=== PATIENT | female | born 1950 | race Caucasian/White ===

== ENCOUNTER 2016-06-05 10:37 | Emergency (ER) | payer OTHER, MEDICARE ==
[~2016-06-05] VITALS: Ht 167.6 cm; Wt 87.0 kg
[~2016-06-05 10:37] MED LIST: AMBR10TA3 PO; ASPI-1085 PO; BUPR200T PO; CALC600T12 PO; CHOL100018 PO; CYAN10009 PO; DESV100T PO; HYDR10TA14 PO; IBUP-14 PO; LEVO75TA4 PO; METO25TA41 PO; MULT-806 PO; PANT40TA25 PO; PRAV20TA4 PO; TADA20TA31 PO; TRAM50TA4 PO; TRAZ-56 PO
[2016-06-05 10:40] VITALS: TEMP 97.9; Ht 167.6 cm; Wt 87.0 kg
--- OUTSIDE RECORDS SUMMARY | 2016-06-05 10:42 | XMS REPORT | Continuity of Care Document ---
Author Author Alex [facility] LIVE Organization [facility] LIVE Address Unknown Phone Unavailable Support Name Relationship Address Phone HAMIDA CONNOR MD Caregiver [address] [facility] [address] [place] [phone] BHARTI TY DO Caregiver [facility] [address] [place] [address] [address] [place] [address] SARAH EUBANKS SR Next Of Kin [address] [place] [address] Insurance Providers Payer Name Policy Number Subscriber Name Relationship [facility] Preferred [id number] Sarah Eubanks Spouse Advance Directives Directive Response Recorded Date/Time Ordered Resuscitation Status Full Code 11/07/13 9:29am Resuscitation Documents on File No 11/09/13 10:28am Chief Complaint and Reason for Visit Chief Complaint RT KNEE REPLACEMENT Reason for Visit Right knee DJD Problems Medical Problems Problem Onset Date Status 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 Medications Medication Dose Route Sig Days/Qty Instructions Order Date Discontinued Date Status Hydroxychloroquine Sulfate 400 Mg PO DAILY 12/18/09 05/17/13 Discontinued Nisoldipine 20 Mg PO DAILY 12/18/09 07/04/12 Discontinued Bupropion Hcl 150 Mg PO DAILY 12/18/09 Active Levothyroxine Sodium 75 Mcg PO DAILY 12/18/09 Active Loratadine 10 Mg PO DAILY 12/18/09 Active Trazodone Hcl 50 Mg PO BEDTIME 12/18/09 Active Pantoprazole Sodium 40 Mg PO DAILY 12/18/09 Active [pristiq] 50 Mg PO BEDTIME 12/18/09 Active Calcitonin,[place],Synthetic 3.7 Ml NS DAILY 12/18/09 07/04/12 Discontinued Simvastatin 10 Mg PO DAILY 12/18/09 05/21/13 Discontinued Aspirin 81 Mg PO DAILY 12/18/09 11/12/13 Discontinued Diazepam 2 Mg PO NEEDED 05/19/10 Active Ca Cmb No.1/Vit D3/B-6/Fa/B12 1 Each PO DAILY 07/04/12 Active Multivitamins 1 Tab PO DAILY 07/04/12 Active Calcium Carb/Vit D3/Minerals 1 Each PO AT DINNERTIME 07/04/12 Active Metoprolol Tartrate 25 Mg PO DAILY 07/05/12 Active Pravastatin Sodium 10 Mg PO BEDTIME 05/21/13 Active Hydrocortisone 15 Mg PO DAILY 11/07/13 Active [Docusate Sodium] 100 Mg PO TWICE A DAY 30 Qty 11/12/13 Active Multivits,Th W-Fe,Other Min 1 Tab PO DAILY 30 Qty 11/12/13 Active Oxycodone HCl 5-15 Mg PO Every 3 Hours PRN BREAKTHROUGH PAIN 60 Qty 10/18 Active Aspirin 325 Mg PO TWICE A DAY 84 Qty 11/12/13 Active Social History Social History Problem Response Recorded Date/Time Smoking Status Never smoker 11/07/2013 8:50am Chewing Tobacco Status No 08/23/2012 2:55pm Hx Substance Use No 08/23/2012 2:55pm Hx Alcohol Use Y RARELY 08/23/2012 2:55pm Has the pt used tobacco in the last 12 months No 05/21/2013 11:37am Query Response Start Date Stop Date Smoking Status Never smoker Hospital Discharge Instructions Instructions: Care Instructions: Reason for Hospitalization: Right knee DJD I was in the hospital because (patient own words): right knee replacement. Discharge Diet: Regular Discharge Activity: Walk regularly. Try to walk a little farther each day. This will help prevent many of the complications that are possible after a total joint replacement. This would include things like pneumonia, blood clots and constipation. Follow Up Appointments: 11/23/13 9:00 AM [facility] FOLLOW UP APPT WITH DR. TY 11/22 AT 3:15 PM Patient Instructions: Swelling 1.Elevate operative extremity above the level of your heart if possible. This will facilitate the movement of fluid back into your body. 2.Do not sit for more than 1 hour at a time. 3.Ice can be used as tolderated - do not apply directly to skin and only leave on for 20 minutes at a time. Constipation 1.Take a stool softener (Colace, Sennokot-S,etc) as needed to prevent constipation 2.Wean yourself off narcotics as soon as possible. Blood Clot prevention 1.Take your anticoagulant (Aspirin, Coumadin, Lovenox,etc) as directed Driving 1.May drive in 4 weeks if you had your LEFT extremity operated on. 2.May drive in 6 weeks if you had your RIGHT extremity operated on. Wound/Incision Care: Tegaderm 1.Clear dressing is to remain in place for 2 weeks. 2.Do not pick at it or scrub it while showering. 3.If the dressing begins to pull up, secure it with 4x4 gauze pad and tape. 4.You may shower; however, do not submerge yourself in water until the incision is completely healed. Mepilex 1.Dressing to remain in place until your follow up appointment. 2.If this dressing starts peeling up slightly, it may be reinforced, if it peels excessively, notify your surgeon's office. 3.You may shower with the dressing in place, but do not submerge in water 4.Do not allow water to seep under the dressing, if it should seep under, remove the dressing and notify your surgeon. Notify Physician If: Call your Surgeon if you have: 1.Chest pain, difficulty breathing, fever>100.5 degrees, chills, heart rate >100, confusion, or persistent nausea/vomitting. 2.Severe pain, swelling, redness, or warmth in either of your legs. 3.During office hours, call [phone] 4. After hours, please call [facility] at [phone], and have the heat sealing machine operator page your Surgeon IN THE EVENT OF AN EMERGENCY, seek medical care at the nearest Emergency Room Condition at time of discharge: Good Good Care Plan Discharge Patient: Goal: Understand discharge plan Patient Instructions: see patient instructions Discharge Patient: Goal: Understand discharge plan Patient Instructions: see patient instructions Plan of Care Discharge Date 11/12/13 12:41pm Disposition 01 DISCHARGED HOME, SELF-CARE Instructions/Education Provided [facility] Orthopedic Dismissal Prescriptions See Medications Section Functional Status Query Response Date Recorded Physical Hygiene Self November 12, 2013 10:54am Disabilities Visual November 12, 2013 10:54am Devices Used Glasses Walker November 12, 2013 10:54am Dressing Self November 12, 2013 10:54am Ambulation Self November 12, 2013 10:54am Diet Self November 12, 2013 10:54am Mental Status Alert Oriented November 12, 2013 10:54am Disabilities Visual November 12, 2013 10:54am Devices Used Glasses Walker November 12, 2013 10:54am Physical Hygiene Self November 12, 2013 10:54am Dressing Self November 12, 2013 10:54am Ambulation Self November 12, 2013 10:54am Diet Self November 12, 2013 10:54am Allergies, Adverse Reactions, Alerts Allergen Type Severity Reaction Status Last Updated amoxicillin trihydrate Allergy Unknown NAUSEA AND DIARRHEA Active 07/04/12 potassium clavulanate Allergy Unknown NAUSEA AND DIARRHEA Active 07/04/12 Sulfamethoxazole Adverse Reaction Mild nausea and diarrhea Active 05/19/10 Trimethoprim Adverse Reaction Mild nausea and diarrhea Active 05/19/10 CHLORA-PREP Adverse Reaction Intermediate ITCHING Active 08/24/12 Immunizations Name Given Type Hx Influenza Vaccination Y NOV 2012 Historical Hx Pneumococcal Vaccination Y JUNE 2012 Historical Hx Influenza Vaccination Y NOV 2012 Historical Vital Signs Acute Vital Signs Vital Response Date/Time Temperature (Fahrenheit) 98.1 deg F (96.8 - 99.1) Temperature (Calculated Celsius) 36.34253 degrees C (36.0 - 37.3) Temperature Source Oral Pulse Rate (adult) 94 bpm (60 - 100) Respiratory Rate 16 breaths/min (10 - 20) O2 Sat by Pulse Oximetry 92 % (90 - 100) Oxygen Delivery Method Room Air Blood Pressure 120/65 mm Hg Blood Pressure Source Automatic Cuff Height 5 ft 6 in Weight 191 lb Body Mass Index 30.0 kg/m^2 Results Test Source Date Result Interp. Ref. Range Comments Activated Partial Thromboplast Time November 07, 2013 1:33pm 31.8 SEC N 24-36 COMMENT [facility] PREJASEN, ALSO HAS UA ORDERED Adrenocorticotropic Hormone May 22, 2013 5:05am 24 pg/mL - -- REFERENCE VALUE --10-60 (a.m. collection) Test Performed by: [place] [address] Body Shop Manager: Calixto Brown III, M.D. ACTH performed at [facility], [address] [place] [address] Paving And Surfacing Labourer Kevin Goode MD Alanine Aminotransferase (ALT/SGPT) May 21, 2013 11:52am 34 U/L N 9- 52 Albumin May 21, 2013 11:52am 3.9 G/DL N 3.5-5.0 Albumin/Globulin Ratio May 21, 2013 11:52am 1.5 RATIO N 1.1-2.2 Alkaline Phosphatase May 21, 2013 11:52am 76 U/L N 38-126 Anion Gap November 10, 2013 4:41am 6 MEQ/L N 5-15 Aspartate Amino Transf (AST/SGOT) May 21, 2013 11:52am 32 U/L N 14-36 B-Type Natriuretic Peptide May 19, 2010 7:05pm 93 PG/ML N 15-100 BUN/Creatinine Ratio November 10, 2013 4:41am 14 RATIO N 6-26 Band Neutrophils % November 30, 2011 10:40am 2.0 % N 0-6 Basophils # (Auto) November 10, 2013 6:40pm 0.0 T/MM3 N 0-0.2 Basophils (%) (Auto) November 10, 2013 6:40pm 0.4 % N 0-2 Blood Urea Nitrogen November 10, 2013 4:41am 13.0 MG/DL N 7-17 C-Reactive Protein May 17, 2013 4:50pm < 5.0 MG/L 0-9 C. difficile Toxin B Gene (PCR) January 02, 2013 2:06pm Negative - If Toxin A is clinically indicated, treat accordingly. Calcium Level November 10, 2013 4:41am 8.3 MG/DL L 8.4-10.2 Calculated Osmolality November 10, 2013 4:41am 267 MOSM/KG N 261-280 Carbon Dioxide Level November 10, 2013 4:41am 31 MEQ/L H 22-30 Chemistry Specimen Hemolysis November 10, 2013 4:41am < 15 0-25 0-25 : No Hemolysis.26-70: Slight Hemolysis - can falsely elevate K and Urine Protein. 71-285: Moderate Hemolysis - can falsely elevate K, Troponin I, CA 19-9, PTH, CSF GLucose, and Urine Protein, and can falsely decrease Phenytoin. 286-999: Gross Hemolysis - can falsely elevate K, Troponin I, CA 19-9, PTH, CSF Glucose, and Urine Protine, and can falsely decrease Phenytoin. Recommend specimen recollection. Chloride Level November 10, 2013 4:41am 102 MEQ/L N 98-107 Cortisol AM Sample May 22, 2013 5:05am 7.6 UG/DL 1 - Before 10:00am : 4.46-22.7 ug/dL;After 5:00pm: 1.7-14.1 ug/dL Cortisol Response to Stim 1 Hour May 22, 2013 9:37am 18.3 UG/DL - COMMENT MUST BE DRAWN EXACTLY 60 MINUTES AFTER ACTH INJECTION Cortisol Response to Stim 1/2 Hour May 22, 2013 9:07am 15.4 UG/DL - COMMENT MUST BE DRAWN EXACTLY 30 MINUTES AFTER ACTH INJECTION Creatine Kinase MB May 31, 2013 4:35pm 0.5 NG/ML N 0-3.4 Creatinine November 10, 2013 4:41am 0.9 MG/DL N 0.7-1.2 D-Dimer May 31, 2013 3:54pm 492 NG/ML H 0-400 <400 NG/ML=PRESUMPTIVE NEGATIVE FOR PE OR DVT>400 NG/ML=ADDITIONAL EVALUATION FOR PE OR DVT RECOMMENDED Eosinophils # (Auto) November 10, 2013 6:40pm 0.0 T/MM3 N 0-0.5 Eosinophils % (Manual) November 30, 2011 10:40am 2.0 % N 0-4 Eosinophils (%) (Auto) November 10, 2013 6:40pm 0.4 % N 0-4 Erythrocyte Sedimentation Rate May 17, 2013 4:50pm 17 MM/HR N 0-20 Free Thyroxine May 17, 2013 4:50pm 1.84 NG/DL N 0.78-2.19 Globulin May 21, 2013 11:52am 2.6 G/DL N 2.4-3.6 Glomerular Filtration Rate Calc November 10, 2013 4:41am 63 - Glucometer November 12, 2013 8:06am 101 mg/dL N 65-110 Glucose Level November 10, 2013 4:41am 87 MG/DL N 65-110 Hematocrit November 11, 2013 4:37am 29.7 % L 36-46 Hemoglobin November 11, 2013 4:37am 9.3 GM/DL L 12-16 Hemoglobin A1c May 17, 2013 4:50pm 5.2 % L 6-7 <6.0 NON-DIABETIC RANGE6.0-7.0 ADA THERAPEUTIC RANGE >7.0 ACTION SUGGESTED Icterus Index November 10, 2013 4:41am < 2 0-7 Immature Granulocyte # (Auto) November 10, 2013 6:40pm 0.02 T/MM3 N 0.00-0.03 Immature Granulocyte % (Auto) November 10, 2013 6:40pm 0.3 % N 0.0-0.5 Lab Scanned Report May 31, 2013 9:01pm LAB TEST FORM REQUEST [id number] - Lipase May 17, 2013 4:50pm 147 U/L N 23-300 COMMENT add to blood already in laboratory from earlier today. Lymphocytes # (Auto) November 10, 2013 6:40pm 1.7 T/MM3 N 1-4.8 Lymphocytes % (Manual) November 30, 2011 10:40am 41.0 % N 23-45 Lymphocytes (%) (Auto) November 10, 2013 6:40pm 21.1 % L 23-45 MRSA Specimen Source October 16, 2013 1:28pm Nasal - Magnesium Level May 22, 2013 5:05am 2.0 MG/DL N 1.6-2.3 COMMENT add to blood in lab from this AM if possible. Mean Corpuscular Hemoglobin November 11, 2013 4:37am 29.2 UUG N 26-34 Mean Corpuscular Hemoglobin Concent November 11, 2013 4:37am 31.3 GM/DL N 31-37 Mean Corpuscular Volume November 11, 2013 4:37am 93.4 UM3 N 80-100 Mean Platelet Volume November 11, 2013 4:37am 11.4 UM3 N 9.4-12.4 Methicillin-Resist S.aureus DNA PCR October 16, 2013 1:28pm Negative - Monocytes # (Auto) November 10, 2013 6:40pm 1.0 T/MM3 H 0-0.8 Monocytes % (Manual) November 30, 2011 10:40am 2.0 % N 0-9.0 Monocytes (%) (Auto) November 10, 2013 6:40pm 12.0 % H 0-9.0 Neutrophils # (Auto) November 10, 2013 6:40pm 5.3 T/MM3 N 1.8-7.7 Neutrophils % (Manual) November 30, 2011 10:40am 53.0 % N 33-66 Neutrophils (%) (Auto) November 10, 2013 6:40pm 65.8 % N 33-66 Platelet Count November 11, 2013 4:37am 156 T/MM3 N 130-400 Potassium Level November 10, 2013 4:41am 4.2 MEQ/L N 3.6-5 Prothromb Time International Ratio May 19, 2010 7:05pm 0.90 N 0.86- 1.10 THERAPUTIC RANGE=2.00-3.00 FOR ANTI-THROMBOSIS THERAPUTIC RANGE=2.50- 3.50 FOR IMPLANTED VALVE RDW Standard Deviation November 11, 2013 4:37am 47.0 FL N 36.9-50.2 Random Cortisol May 18, 2013 11:38am 2.7 UG/DL - Before 10:00am: 4.46-22.7 ug/dL;After 5:00pm: 1.7-14.1 ug/dL Red Blood Count November 11, 2013 4:37am 3.18 M/MM3 L 4.00-5.20 Sodium Level November 10, 2013 4:41am 139 MEQ/L N 134-144 Thyroid Stimulating Hormone (TSH) May 17, 2013 4:50pm 0.41 MIU/L L 0.47-4.68 Total Bilirubin May 21, 2013 11:52am 0.60 MG/DL N 0.20-1.30 Total Creatine Kinase May 31, 2013 4:35pm 59 U/L N 30-135 Total Protein May 21, 2013 11:52am 6.5 G/DL N 6.3-8.2 Total Triiodothyronine May 21, 2010 11:44am 1.55 NMOL/L N 1.49-2.60 Troponin I May 31, 2013 4:35pm < 0.012 ng/ml 0-0.12 Turbidity November 10, 2013 4:41am < 20 0-20 Urinalysis Comment November 07, 2013 1:37pm Microscopic not ind. - COMMENT PASU PREOPHas specimen been collected/obtained? Y Urine Bacteria May 17, 2013 4:40pm Trace H - Has specimen been collected/obtained? Y Urine Bilirubin November 07, 2013 1:37pm Negative - COMMENT PASU PREOPHas specimen been collected/obtained? Y Urine Blood November 07, 2013 1:37pm Negative - COMMENT PASU PREOPHas specimen been collected/obtained? Y Urine Collection Type November 07, 2013 1:37pm Cleancatch-midstream - COMMENT PASU PREOPHas specimen been collected/obtained? Y Urine Color November 07, 2013 1:37pm Yellow - COMMENT PASU PREOPHas specimen been collected/obtained? Y Urine Culture Indicated May 17, 2013 4:40pm Cult ordered & setup - Has specimen been collected/obtained? Y Urine Glucose (UA) November 07, 2013 1:37pm Negative - COMMENT PASU PREOPHas specimen been collected/obtained? Y Urine Ketones November 07, 2013 1:37pm Negative - COMMENT PASU PREOPHas specimen been collected/obtained? Y Urine Leukocyte Esterase November 07, 2013 1:37pm Negative - COMMENT PASU PREOPHas specimen been collected/obtained? Y Urine Nitrite November 07, 2013 1:37pm Negative - COMMENT PASU PREOPHas specimen been collected/obtained? Y Urine Protein November 07, 2013 1:37pm Negative - COMMENT PASU PREOPHas specimen been collected/obtained? Y Urine RBC May 17, 2013 4:40pm 1-3 /HPF - Has specimen been collected/obtained? Y Urine Specific [place] November 07, 2013 1:37pm 1.020 - COMMENT PASU PREOPHas specimen been collected/obtained? Y Urine Turbidity November 07, 2013 1:37pm Clear - COMMENT PASU PREOPHas specimen been collected/obtained? Y Urine Urobilinogen November 07, 2013 1:37pm 0.2 EU/DL - COMMENT PASU PREOPHas specimen been collected/obtained? Y Urine WBC May 17, 2013 4:40pm None seen /HPF - Has specimen been collected/obtained? Y Urine pH November 07, 2013 1:37pm 6.0 - COMMENT PASU PREOPHas specimen been collected/obtained? Y Venous Blood Lactate February 15, 2013 3:28pm 0.8 MMOL/L N 0.6-2.2 White Blood Count November 11, 2013 4:37am 7.5 T/MM3 N 4.5-11.0 c-ANCA May 17, 2013 4:50pm 17 U/mL - Normal range for ANCA:<100 U/ mL: Negative 100-120 U/mL: Indeterminate >120 U/mL: Positive ANCA performed at [facility], [address] [place] [id number] Paving And Surfacing Labourer Amanda Goode MD p-ANCA May 17, 2013 4:50pm 24 U/mL - Wet Prep Vagina October 21, 2011 3:35pm Helicobacter pylori Rapid Urease Gastric Biopsy December 18, 2009 9:31am Urine Culture Urine, Clean Catch-Midstream May 17, 2013 4:50pm Name: WAYNE EUBANKS Unit #: [id number] : [id number] Sex: F Loc / Svc: MED DOS: Signed Report #: [id number] DIAGNOSTIC IMAGING REPORT TYPE OF EXAM: US VENOUS DUPLEX, LOWER EXT RT Dictated By: FAVIOLA JACKSON MD INDICATION: ITS.REASON: right leg swelling US VENOUS DUPLEX, LOWER EXT RT: Comparison: None Findings: There is no evidence for acute deep venous thrombosis in the right thigh. Specifically, serial graded compression was performed from the inguinal ligament to the popliteal bifurcation, on the right thigh, demonstrating appropriate compressibility of the deep venous system. In addition, color and pulsed Doppler demonstrate appropriate spontaneous flow, variation with respiration, and augmentation with calf compression. At the ankle, normal flow is identified in the posterior tibial veins; these vessels are also normal in caliber. Impression: No evidence of acute DVT in the right lower limb. There is a preliminary report by [facility]. . Procedures Procedure Status Date Provider(s) Total knee arthroplasty completed 11/08/13 HAMIDA CONNOR MD Encounters Encounter Location Date/Time Discharged Inpatient [facility] 11/08/13 6:46am Registered [facility] 11/02/13 3:37pm Registered [facility] 10/16/13 1:25pm Registered [facility] 10/15/13 4:38pm Recent Diagnosis Right knee DJD
--- OUTSIDE RECORDS SUMMARY | 2016-06-05 10:42 | XMS REPORT | Continuity of Care Document ---
Author Author [facility] Organization [facility] Address Unknown Phone Unavailable Support Name Relationship Address Phone BHARTI TY Caregiver [facility] [address] [place] [address] STACEY Ballesteros [phone] SARAH SANTANA SR Next Of Kin [address] [place] [address] Insurance Providers Payer Name Policy Number Subscriber Name Relationship [facility] Preferred [id number] Sarah Santana Spouse Advance Directives Directive Response Recorded Date/Time Ordered Resuscitation Status Full Code 11/14/13 11:58am Resuscitation Documents on File No 11/14/13 12:46pm Chief Complaint and Reason for Visit Chief Complaint ADDISONS,DEHYDRATION Reason for Visit Hypothyroidism Adrenal insufficiency Problems Medical Problems Problem Onset Date Status 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 Hypothyroidism Unknown Active Adrenal insufficiency Unknown Active Medications Medication Dose Route Sig Days/Qty Instructions Order Date Discontinued Date Status Hydroxychloroquine Sulfate 400 Mg PO DAILY 12/18/09 05/17/13 Discontinued Nisoldipine 20 Mg PO DAILY 12/18/09 07/04/12 Discontinued Bupropion Hcl 150 Mg PO DAILY 12/18/09 Active Levothyroxine Sodium 75 Mcg PO DAILY 12/18/09 Active Loratadine 10 Mg PO DAILY 12/18/09 Active Trazodone Hcl 50 Mg PO BEDTIME HOLD UNTIL NO LONGER TAKING OXYCODONE Active Pantoprazole Sodium 40 Mg PO DAILY 12/18/09 Active [pristiq] 50 Mg PO BEDTIME 12/18/09 Active Calcitonin,Tyler,Synthetic 3.7 Ml NS DAILY 12/18/09 07/04/12 Discontinued [...] 05/21/13 Active Hydrocortisone 15 Mg PO DAILY 15MG BY MOUTH DAILY THEREAFTER. Active [Docusate Sodium] 100 Mg PO TWICE A DAY 30 Qty 11/12/13 Active Multivits,Th W-Fe,Other Min 1 Tab PO DAILY 30 Qty 11/12/13 11/15/13 Discontinued Oxycodone HCl 5-15 Mg PO Every 3 Hours PRN BREAKTHROUGH PAIN 60 Qty 10/18 Active Aspirin 325 Mg PO TWICE A DAY 84 Qty 11/12/13 11/15/13 Discontinued Aspirin 325 Mg PO DAILY 84 Qty 11/15/13 Active Ondansetron 4 Mg PO Q6H/0300,0900,1500,2100 14 Days 11/15/13 Active Albuterol Sulfate 1-2 Inhaler PO Every 6 Hours PRN SHORTNESS OF AIR/ WHEEZING 0 Qty 11/15/13 Active Social History Social History Problem Response Recorded Date/Time Smoking Status Never smoker 11/14/2013 12:47pm Chewing Tobacco Status No 08/23/2012 2:55pm Hx Substance Use No 08/23/2012 2:55pm Hx Alcohol Use Y RARELY 08/23/2012 2:55pm Has the pt used tobacco in the last 12 months No 11/14/2013 12:47pm Query Response Start Date Stop Date Smoking Status Never smoker Hospital Discharge Instructions Instructions: Care Instructions: Reason for Hospitalization: ADDISONS, DEHYD I was in the hospital because (patient own words): DR. TY WANTED ME TOT COME IN AND GET REHYDRATED Discharge Diet: PRE HOSPITALIZATION Discharge Activity: PER PRE HOSPITILIZATION Follow Up Appointments: FOLLOW UP WITH DR. TY (CBC, CMP AT [facility] BEFORE APPOINTMENT WITH KARSON CEJA TUESDAY NEXT WEEK) FOLLOW UP WITH DR. RAMIREZ PREVIOUSLY SCHEDULED FOLLOW UP WITH DR. SCHWARZ IN ONE TO TWO WEEKS FOLLOW UP WITH DR. CONNOR SCHEDULED Patient Instructions: RETURN TO CARE IMMEDIATELY IF VOMITTING, NAUSEA, LIGHTHEADEDNESS, LEG SWELLING/PAIN/REDNESS, FEVERS, CHILLS, DIARRHEA SHOULD WORSEN OR OCCUR Condition at time of discharge: Good Notify Physician If: fever greater that 101.5 redness or oozing of incions Condition at time of discharge: Good - You have a fever over 101.5 degrees. - You develop redness, swelling, increasing pain, excessive bleeding, or excessive/foul smelling drainage at your incision site. - You have difficulty breathing. During office hours, call [phone]. After hours, please call [facility] at [phone] and have the solid fiber paster operator page Dr. Condon or the covering surgeon. *In the event of an emergency, seek medical care at the nearest emergency room.* Condition at time of discharge: Good Plan of Care Discharge Date 11/15/13 7:40pm Disposition 01 DISCHARGED HOME, SELF-CARE Instructions/Education Provided DI for Dehydration -- Adult Prescriptions See Medications Section Functional Status Query Response Date Recorded Physical Hygiene Self November 12, 2013 10:54am Physical Hygiene Self November 12, 2013 10:54am Allergies, Adverse Reactions, Alerts Allergen Type Severity Reaction Status Last Updated amoxicillin trihydrate Allergy Unknown NAUSEA AND DIARRHEA Active 11/14/13 potassium clavulanate Allergy Unknown NAUSEA AND DIARRHEA Active 11/14/13 Sulfamethoxazole Adverse Reaction Mild nausea and diarrhea Active 11/14/13 Trimethoprim Adverse Reaction Mild nausea and diarrhea Active 11/14/13 CHLORA-PREP Adverse Reaction Intermediate ITCHING Active 08/24/12 Immunizations Name Given Type Hx Influenza Vaccination Y NOV 2012 Historical Hx Pneumococcal Vaccination Y JUNE 2012 Historical Hx Influenza Vaccination Y NOV 2012 Historical Vital Signs Acute Vital Signs Vital Response Date/Time Temperature (Fahrenheit) 98.4 deg F (96.8 - 99.1) Temperature (Calculated Celsius) 36.14541 degrees C (36.0 - 37.3) Temperature Source Temporal Pulse Rate (adult) 103 bpm (60 - 100) O2 Sat by Pulse Oximetry 100 % (90 - 100) Height 5 ft 6 in Weight 185 lb Body Mass Index 29.0 kg/m^2 Results Test Source Date Result Interp. Ref. Range Comments Activated Partial Thromboplast Time November 07, 2013 1:33pm 31.8 SEC N 24-36 COMMENT ROYCEU PREOP, ALSO HAS UA ORDERED Adrenocorticotropic Hormone May 22, 2013 5:05am 24 pg/mL - -- REFERENCE VALUE --10-60 (a.m. collection) Test Performed by: [address] [address] X Ray Examiner Of Aircraft: Calixto Brown III, M.D. ACTH performed at [facility], [address] [place] [address] Financial Economist Kevin Goode MD Alanine Aminotransferase (ALT/SGPT) November 15, 2013 5:01am 84 U/L H 9 -52 Albumin November 15, 2013 5:01am 3.2 G/DL L 3.5-5.0 Albumin/Globulin Ratio November 15, 2013 5:01am 1.1 RATIO N 1.1-2.2 Alkaline Phosphatase November 15, 2013 5:01am 185 U/L H 38-126 Anion Gap November 15, 2013 5:01am 11 MEQ/L N 5-15 Aspartate Amino Transf (AST/SGOT) November 15, 2013 5:01am 36 U/L N 14- 36 B-Type Natriuretic Peptide May 19, 2010 7:05pm 93 PG/ML N 15-100 BUN/Creatinine Ratio November 15, 2013 5:01am 10 RATIO N 6-26 Band Neutrophils % November 30, 2011 10:40am 2.0 % N 0-6 Basophils # (Auto) November 15, 2013 5:01am 0.0 T/MM3 N 0-0.2 Basophils (%) (Auto) November 15, 2013 5:01am 0.5 % N 0-2 Blood Urea Nitrogen November 15, 2013 5:01am 7.0 MG/DL N 7-17 C-Reactive Protein November 14, 2013 12:12pm 68.4 MG/L H 0-9 C. difficile Toxin B Gene (PCR) November 15, 2013 8:40am Negative - If Toxin A is clinically indicated, treat accordingly. Calcium Level November 15, 2013 5:01am 8.8 MG/DL N 8.4-10.2 Calculated Osmolality November 15, 2013 5:01am 269 MOSM/KG N 261-280 Carbon Dioxide Level November 15, 2013 5:01am 25 MEQ/L N 22-30 Chemistry Specimen Hemolysis November 15, 2013 5:01am < 15 0-25 0-25 : No Hemolysis.26-70: [...] Phenytoin. Recommend specimen recollection. Chloride Level November 15, 2013 5:01am 105 MEQ/L DN 98-107 Cortisol AM Sample May 22, 2013 [...] MINUTES AFTER ACTH INJECTION Creatine Kinase MB November 14, 2013 12:12pm 0.6 NG/ML N 0-3.4 Creatinine November 15, 2013 5:01am 0.7 MG/DL N 0.7-1.2 D-Dimer May 31, 2013 3:54pm 492 NG/ML H 0-400 <400 NG/ML=PRESUMPTIVE NEGATIVE FOR PE OR DVT>400 NG/ML=ADDITIONAL EVALUATION FOR PE OR DVT RECOMMENDED Eosinophils # (Auto) November 15, 2013 5:01am 0.0 T/MM3 N 0-0.5 Eosinophils % (Manual) November 30, 2011 10:40am 2.0 % N 0-4 Eosinophils (%) (Auto) November 15, 2013 5:01am 0.3 % N 0-4 Erythrocyte Sedimentation Rate November 14, 2013 12:12pm 98 MM/HR H 0- 20 Free Thyroxine May 17, 2013 4:50pm 1.84 NG/DL N 0.78-2.19 Globulin November 15, 2013 5:01am 2.8 G/DL N 2.4-3.6 Glomerular Filtration Rate Calc November 15, 2013 5:01am 85 - Glucometer November 14, 2013 9:21pm 135 mg/dL H 65-110 Glucose Level November 15, 2013 5:01am 101 MG/DL N 65-110 Hematocrit November 15, 2013 5:01am 27.9 % L 36-46 Hemoglobin November 15, 2013 5:01am 8.9 GM/DL L 12-16 Hemoglobin A1c May 17, 2013 4:50pm 5.2 % L 6-7 <6.0 NON-DIABETIC RANGE6.0-7.0 ADA THERAPEUTIC RANGE >7.0 ACTION SUGGESTED Icterus Index November 15, 2013 5:01am < 2 0-7 Immature Granulocyte # (Auto) November 15, 2013 5:01am 0.04 T/MM3 H 0.00-0.03 Immature Granulocyte % (Auto) November 15, 2013 5:01am 0.5 % N 0.0-0.5 Lab Scanned Report May 31, 2013 9:01pm LAB TEST FORM REQUEST [id number] - Lipase May 17, 2013 4:50pm 147 U/L N 23-300 COMMENT add to blood already in laboratory from earlier today. Lymphocytes # (Auto) November 15, 2013 5:01am 1.9 T/MM3 N 1-4.8 Lymphocytes % (Manual) November 30, 2011 10:40am 41.0 % N 23-45 Lymphocytes (%) (Auto) November 15, 2013 5:01am 24.5 % N 23-45 MRSA Specimen Source October 16, 2013 1:28pm Nasal - Magnesium Level November 14, 2013 12:12pm 2.1 MG/DL N 1.6-2.3 Mean Corpuscular Hemoglobin November 15, 2013 5:01am 29.2 UUG N 26-34 Mean Corpuscular Hemoglobin Concent November 15, 2013 5:01am 31.9 GM/DL N 31-37 Mean Corpuscular Volume November 15, 2013 5:01am 91.5 UM3 N 80-100 Mean Platelet Volume November 15, 2013 5:01am 10.2 UM3 N 9.4-12.4 Methicillin-Resist S.aureus DNA PCR October 16, 2013 1:28pm Negative - Monocytes # (Auto) November 15, 2013 5:01am 0.9 T/MM3 H 0-0.8 Monocytes % (Manual) November 30, 2011 10:40am 2.0 % N 0-9.0 Monocytes (%) (Auto) November 15, 2013 5:01am 12.0 % H 0-9.0 KE-Gra-Z-Type Natriuretic Peptide November 14, 2013 12:12pm 566 PG/ML H 0-175 Rule in cut points: <50 years old=450; 50-75 years old=900; >75 years old=1800; When utilizing ProBNP rule-in cut points, adjustment for impaired renal function is typically not required. Neutrophils # (Auto) November 15, 2013 5:01am 4.9 T/MM3 N 1.8-7.7 Neutrophils % (Manual) November 30, 2011 10:40am 53.0 % N 33-66 Neutrophils (%) (Auto) November 15, 2013 5:01am 62.2 % N 33-66 Platelet Count November 15, 2013 5:01am 284 T/MM3 N 130-400 Potassium Level November 15, 2013 5:01am 3.5 MEQ/L L 3.6-5 Prothromb Time International Ratio May 19, 2010 7:05pm 0.90 N 0.86- 1.10 THERAPUTIC RANGE=2.00-3.00 FOR ANTI-THROMBOSIS THERAPUTIC RANGE=2.50- 3.50 FOR IMPLANTED VALVE RDW Standard Deviation November 15, 2013 5:01am 46.3 FL N 36.9-50.2 Random Cortisol May 18, 2013 11:38am 2.7 UG/DL - Before 10:00am: 4.46-22.7 ug/dL;After 5:00pm: 1.7-14.1 ug/dL Red Blood Count November 15, 2013 5:01am 3.05 M/MM3 L 4.00-5.20 Sodium Level November 15, 2013 5:01am 141 MEQ/L N 134-144 Stool for White Cells November 15, 2013 8:40am Negative - Has specimen been collected/obtained? Y Thyroid Stimulating Hormone (TSH) November 14, 2013 12:12pm 0.60 MIU/L N 0.47-4.68 Total Bilirubin November 15, 2013 5:01am 0.70 MG/DL N 0.20-1.30 Total Creatine Kinase November 14, 2013 12:12pm 45 U/L N 30-135 Total Protein November 15, 2013 5:01am 6.0 G/DL L 6.3-8.2 Total Triiodothyronine May 21, 2010 11:44am 1.55 NMOL/L N 1.49-2.60 Troponin I November 14, 2013 11:58pm < 0.012 ng/ml 0-0.12 Turbidity November 15, 2013 5:01am < 20 0-20 Urinalysis Comment November 07, 2013 1:37pm Microscopic not ind. - COMMENT PASU PREOPHas specimen been collected/obtained? Y Urine Bacteria November 14, 2013 2:30pm None seen - Has specimen been collected/obtained? Y Urine Bilirubin November 14, 2013 2:30pm Negative - Has specimen been collected/obtained? Y Urine Blood November 14, 2013 2:30pm Negative - Has specimen been collected/obtained? Y Urine Collection Type November 14, 2013 2:30pm Cleancatch-midstream - Has specimen been collected/obtained? Y Urine Color November 14, 2013 2:30pm Yellow - Has specimen been collected/obtained? Y Urine Culture Indicated May 17, 2013 4:40pm Cult ordered & setup - Has specimen been collected/obtained? Y Urine Glucose (UA) November 14, 2013 2:30pm Negative - Has specimen been collected/obtained? Y Urine Ketones November 14, 2013 2:30pm Trace H - Has specimen been collected/obtained? Y Urine Leukocyte Esterase November 14, 2013 2:30pm Negative - Has specimen been collected/obtained? Y Urine Nitrite November 14, 2013 2:30pm Negative - Has specimen been collected/obtained? Y Urine Protein November 14, 2013 2:30pm Negative - Has specimen been collected/obtained? Y Urine RBC November 14, 2013 2:30pm 0-1 /HPF - Has specimen been collected/obtained? Y Urine Specific [place] November 14, 2013 2:30pm 1.010 L - Has specimen been collected/obtained? Y Urine Squamous Epithelial Cells November 14, 2013 2:30pm 0-5 - Has specimen been collected/obtained? Y Urine Turbidity November 14, 2013 2:30pm Clear - Has specimen been collected/obtained? Y Urine Urobilinogen November 14, 2013 2:30pm 0.2 EU/DL - Has specimen been collected/obtained? Y Urine WBC November 14, 2013 2:30pm 3-5 /HPF - Has specimen been collected/obtained? Y Urine pH November 14, 2013 2:30pm 7.5 - Has specimen been collected/ obtained? Y Venous Blood Lactate November 14, 2013 12:12pm 1.3 MMOL/L N 0.6-2.2 White Blood Count November 15, 2013 5:01am 7.8 T/MM3 N 4.5-11.0 c-ANCA May 17, 2013 4:50pm 17 U/mL - Normal range for ANCA:<100 U/ mL: Negative 100-120 U/mL: Indeterminate >120 U/mL: Positive ANCA performed at [facility], [address] [place] [address] Financial Economist Amanda Goode MD p-ANCA May 17, 2013 4:50pm 24 U/mL - Wet Prep Vagina October 21, 2011 3:35pm Helicobacter pylori Rapid Urease Gastric Biopsy December 18, 2009 9:31am Urine Culture Urine, Clean Catch-Midstream May 17, 2013 4:50pm Name: WAYNE SANTANA Unit #: [id number] : [id number] Sex: F Loc / Svc: SR DOS: Signed Report #: [id number] DIAGNOSTIC IMAGING REPORT TYPE OF EXAM: US VENOUS DUPLEX, LOWER EXT RT Dictated By: FAVIOLA HOFF MD INDICATION: ITS.REASON: DO - CHECK FOR CLOTTING IN RIGHT LOWER EXTREMITY US VENOUS DUPLEX, LOWER EXT RT: Comparison: [...] acute DVT in the right lower limb. . Procedures Procedure Status Date Provider(s) Total knee arthroplasty completed 11/08/13 HAMIDA CONNOR MD Encounters Encounter Location Date/Time Discharged Inpatient [facility] 11/14/13 11:43am Discharged Inpatient [facility] 11/08/13 6:46am Registered [facility] 11/02/13 3:37pm Registered [facility] 10/16/13 1:25pm Registered [facility] 10/15/13 4:38pm Recent Diagnosis Hypothyroidism Adrenal insufficiency
--- OUTSIDE RECORDS SUMMARY | 2016-06-05 10:42 | XMS REPORT | Referral Summary ---
Author [facility] Address Unknown Phone Unavailable Encounter [facility] [id number] Date(s): 09/13/14 - 09/13/14 [facility] [address] [place] [address] Discharge Disposition: 01-Home or Self Care Attending Physician: Jamshid Avelar MD Admitting Physician: Jamshid Avelar MD Vital Signs No data available for this section Problem List No data available for this section Allergies, Adverse Reactions, Alerts No data available for this section Medications No data available for this section Results No data available for this section Immunizations No data available for this section Procedures No data available for this section Social History No data available for this section Assessment and Plan No data available for this section
--- OUTSIDE RECORDS SUMMARY | 2016-06-05 10:42 | XMS REPORT | Continuity of Care Document ---
Author Author [facility] Organization [facility] Address Unknown Phone Unavailable Allergies Active Description Code Type Severity Reaction Onset Reported/Identified Relationship to Patient Clinical Status Yes No Known Allergies MED N/A N/A Yes Sulfa (Sulfonamide Antibiotics) Sulfa (Sulfonamide Antibiotics) Drug Allergy Unknown U 2014 Yes sulfamethoxazole sulfamethoxazole Drug Allergy Unknown vomiting 09/13/2014 Yes trimethoprim trimethoprim Drug Allergy Unknown U 09/13/2014 Medications Medication Packaging Start Date Stop Date Route Dosage Sig BuPROPion HCl ER (SR) 200 MG Oral Tablet Extended Release 12 Hour UD 04/23/2014 10/21/2014 ORAL 200MG TAKE 1 TABLET EVERY MORNING. Pristiq 100 MG Oral Tablet Extended Release 24 Hour UD 04/23/2014 10/21/2014 ORAL 100MG TAKE 1 TABLET DAILY. BuPROPion HCl ER (SR) 200 MG Oral Tablet Extended Release 12 Hour UD 10/22/2014 04/21/2015 ORAL 200MG TAKE 1 TABLET EVERY MORNING. Pristiq 100 MG Oral Tablet Extended Release 24 Hour UD 10/22/2014 04/21/2015 ORAL 100MG TAKE 1 TABLET DAILY. Pristiq 100 MG Oral Tablet Extended Release 24 Hour UD 04/24/2015 06/24/2015 ORAL 100MG TAKE ONE TABLET BY MOUTH DAILY Pristiq 100 MG Oral Tablet Extended Release 24 Hour UD 06/23/2015 07/17/2015 ORAL 100MG TAKE ONE TABLET BY MOUTH DAILY. PLEASE REMIND MUST BE SEEN 07/15/15 BuPROPion HCl ER (SR) 200 MG Oral Tablet Extended Release 12 Hour UD 07/15/2015 01/12/2016 ORAL 200MG TAKE 1 TABLET EVERY MORNING. Pristiq 100 MG Oral Tablet Extended Release 24 Hour UD 07/15/2015 01/12/2016 ORAL 100MG TAKE 1 TABLET DAILY. BuPROPion HCl ER (SR) 200 MG Oral Tablet Extended Release 12 Hour UD 01/13/2016 07/12/2016 ORAL 200MG TAKE 1 TABLET EVERY MORNING. Pristiq 100 MG Oral Tablet Extended Release 24 Hour UD 01/13/2016 07/12/2016 ORAL 100MG TAKE 1 TABLET DAILY. 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] Khushbu, Juan 07/21/2015 F F33.1 Major depressive disorder, recurrent, moderate Alstrom, Vickie M 01/13/2016 F F33.1 Major depressive disorder, recurrent, moderate JaredMelissa A 01/13/2016 F G47.30 Sleep apnea, unspecified JaredJavierie A 01/13/2016 F G47.30 Sleep apnea, unspecified Psy, Batch 01/13/2016 F F33.1 Major depressive disorder, recurrent, moderate Psy, Batch Procedures Code Description Performed By Performed On 00.59 INTRAVASCULAR PRESSURE MEASUREMENT OF CORONARY ART Marian BOYLE, Maulik 09/13/2014 37.22 LEFT HEART CARDIAC CATH Marian BOYLE, Maulik 09/13/2014 88.53 LT HEART ANGIOCARDIOGRAM Marian BOYLE, Maulik 09/13/2014 88.56 CORONAR ARTERIOGR-2 CATH Marian BOYLE, Maulik 09/13/2014 [id number] OFFICE/OUTPATIENT VISIT, Juan Serrano 07/15/2015 [id number] OFFICE/OUTPATIENT VISIT, Juan Serrano 07/15/2015 [id number] OFFICE/OUTPATIENT VISIT, Juan Serrano 01/13/2016 [id number] OFFICE/OUTPATIENT VISIT, Juan Serrano 01/13/2016 Results Test Result Range CBC - 09/13/14 11:35 MEAN CELL HGB 28.6 pg 27.0-33.0 MEAN CELL HGB CONCENTRATION 31.5 g/dL 32.0-37.0 MEAN CELL VOLUME 90.6 fl 80.0-100.0 RED BLOOD CELL 4.48 m/cumm 4.00-6.00 RED CELL DISTRIBUTION WIDTH 14.1 % 11.0- 15.6 WHITE BLOOD CELL 8.0 k/cumm 5.0-10.0 HEMOGLOBIN 12.8 gm/dL 12.0-16.0 HEMATOCRIT 40.6 % 37.0-47.0 PLATELET COUNT 179 k/cumm 150-400 METABOLIC PANEL, BASIC - 09/13/14 11:35 POTASSIUM 4.3 mmol/L 3.5-5.3 EST GFR (MDRD) 50 mL/min > 59 ANION GAP 9 mmol/L 5-15 EST CrCl (CG) 58 mL/min > 59 GLUCOSE 91 mg/dL 70-99 CALCIUM 9.2 mg/dL 8.5-10.1 BLOOD UREA NITROGEN 14 mg/dL 7-20 CREATININE 1.1 mg/dL 0.6-1.0 SODIUM 142 mmol/L 135-148 CHLORIDE 107 mmol/L 98-110 CARBON DIOXIDE 26 mmol/L 21-32 GLUCOSE (POC) - 09/13/14 14:17 GLUCOSE (POC) 62 mg/dL 70-99 METABOLIC PANEL, BASIC - 09/13/14 15:00 POTASSIUM 3.9 mmol/L 3.5-5.3 EST GFR (MDRD) 50 mL/min > 59 ANION GAP 8 mmol/L 5-15 EST CrCl (CG) 58 mL/min > 59 GLUCOSE 130 mg/dL 70-99 CALCIUM 8.3 mg/dL 8.5-10.1 BLOOD UREA NITROGEN 12 mg/dL 7-20 CREATININE 1.1 mg/dL 0.6-1.0 SODIUM 142 mmol/L 135-148 CHLORIDE 106 mmol/L 98-110 CARBON DIOXIDE 28 mmol/L -32 Encounters ACCT No. Visit Date/Time Discharge Status Pt. Type Provider Facility Loc./Unit Complaint [id number] 09/13/2014 10:40:00 2014 17:00:00 DIS Outpatient Marian BOYLE, [facility]
--- OUTSIDE RECORDS SUMMARY | 2016-06-05 10:42 | XMS REPORT | Continuity of Care Document ---
Author Author [facility] Organization [facility] Address Unknown Phone Unavailable Support Name Relationship Address Phone KEVIN HERNANDEZ MD Caregiver [address] [place] [address] Unavailable DONTAE ZAYAS MD Caregiver [address] [place] [address] Unavailable SARAH SANTANA SR Next Of Kin [address] [place] [address] Insurance Providers Guarantor Wayne Santana Address [address] [place] [address] Email [email or web address] Payer [facility] Preferred Policy Number [id number] Subscriber's Name Sarah Santana Relationship 01 Spouse Group Number [id number] Advance Directives Directive Response Recorded Date/Time Ordered Resuscitation Status Full Code 08/11/15 2:05pm Resuscitation Documents on File Yes 08/12/15 7:20am DPOA for Healthcare Only Yes 08/12/15 7:20am Problems Active Problems Medical Problem Onset Date Status Adrenal insufficiency Unknown Chronic Distal radius fracture, left Unknown Acute Hypothyroidism Unknown Chronic 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 1 Tab Oral Daily 03/03/15 Bupropion Hcl (Bupropion Hcl Sr) 200 Mg Tablet.er 1 Tab Oral Daily 03/03/15 Ca Cmb No.1/Vit D3/B-6/Fa/B12 (Vitamin D3 1,000 Unit Tablet) 1 Each Tablet 1 Tab Oral Daily 07/04/12 Calcium Carb/Vit D3/Minerals (Calcium +D & Minerals Chew Tab) 1 Each Tab.chew 1 Tab Oral Daily 03/03/15 Cyanocobalamin (Vitamin B-12) (Vitamin B-12) 1,000 Mcg Tablet 1 Tab Oral Daily 30 Tablet 03/03/15 Cyclosporine (Restasis) 1 Each Droperette 1 Drop Both Eyes Twice A Day 03/03/15 Desvenlafaxine Succinate (Pristiq Er) 100 Mg Tab.er.24h 1 Tab Oral Daily 03/03/15 Dextran 70/Hypromellose (Artificial Tears) 1 Each Droperette 1-2 Drop Both Eyes Every 4 Hours Prn as needed for Dry Eyes 03/03/15 Diazepam (Valium) 2 Mg Tablet 1 Tab Oral As Needed 05/19/10 Fluticasone Propionate (Fluticasone Prop 50 Mcg/Actuation Nasal Wedron) 120 Wedron/16 G Wedron 1 Wedron Intranasal Daily 03/03/15 Hydrocortisone 10 Mg Tablet 1 Tab Oral Every Morning 1 TAB IN AM 1/ 2 TAB AT 4 PM 11/07/13 Levothyroxine Sodium (Synthroid) 100 Mcg Tablet 1 Tab Oral Daily 12/18/09 Loratadine 10 Mg Tablet 1 Tab Oral Daily 12/18/09 Metoprolol Tartrate 25 Mg Tablet 1 Tab Oral Daily 07/05/12 Multivitamins (Multivitamin) 1 Tab Tablet 1 Tab Oral Daily Pantoprazole Sodium (Protonix) 40 Mg Tablet.dr 1 Tab Oral Daily 12/18/09 Pravastatin Sodium 20 Mg Tablet 1 Tab Oral Bedtime 03/03/15 Tadalafil (Adcirca) 20 Mg Tablet 2 Tab Oral Daily 03/03/15 Tramadol Hcl 50 Mg Tablet 1 Tab Oral Three Times A Day as needed for Pain 03/03/15 Trazodone Hcl 50 Mg Tablet 1 Tab Oral Bedtime 12/18/09 Past Home Medications Medication Directions Ordered Status Aspirin (Aspirin Ec) 325 Mg Tablet.dr, 325 Mg Oral Twice A Day 11/12/13 Discontinued Aspirin (Baby Aspirin) 81 Mg Tab.chew, 81 Mg Oral Daily 12/18/09 Discontinued Calcitonin,[place],Synthetic (Fortical) 3.7 Ml Wedron.pump, 3.7 Ml Nasal Daily 12/18/09 Discontinued Hydroxychloroquine Sulfate (Plaquenil) 200 Mg Tablet, 400 Mg Oral Daily 12/18 Discontinued Multivits,Th W-Fe,Other Min (Therems-H) 1 Tab Tablet, 1 Tab Oral Daily Discontinued Nisoldipine (Sular) 20 Mg Tablet, 20 Mg Oral Daily 12/18/09 Discontinued Simvastatin (Zocor) 10 Mg Tablet, 10 Mg Oral Daily 12/18/09 Discontinued Social History Social History Problem Response Recorded Date/Time Onset Date Status Chewing Tobacco Status No 08/23/2012 2:55pm Not Applicable Not Applicable Hx Substance Use No 08/11/2015 9:59am Not Applicable Not Applicable Hx Alcohol Use N RARELY 08/12/2015 8:29am Not Applicable Not Applicable Has the pt used tobacco in the last 12 months No 08/11/2015 9:59am Not Applicable Not Applicable Tobacco Usage smoke 03/14/2015 7:33pm Not Applicable Not Applicable Query Response Start Date Stop Date Smoking Status Never smoker Hospital Discharge Instructions No hospital discharge instructions. Plan of Care Discharge Date 08/12/15 10:00am Prescriptions See Medication Section Functional Status Query Response Date Recorded Ability to complete ADL's impeded by No change August 12, 2015 7:20am Allergies, Adverse Reactions, Alerts Allergen Type Severity Reaction Status Last Updated amoxicillin trihydrate Allergy Unknown NAUSEA AND DIARRHEA Active 11/14/13 potassium clavulanate Allergy Unknown NAUSEA AND DIARRHEA Active 11/14/13 Sulfamethoxazole Adverse Reaction Mild nausea and diarrhea Active 11/14/13 Trimethoprim Adverse Reaction Mild nausea and diarrhea Active 11/14/13 CHLORA-PREP Adverse Reaction Intermediate ITCHING Active 08/24/12 Immunizations Query Response on File Recorded Date/Time Hx Influenza Vaccination Y DEC 2014 08/11/15 9:59am Hx Pneumococcal Vaccination Y JUNE 2012 08/11/15 9:59am Hx Influenza Vaccination Y DEC 2014 08/11/15 9:59am Tdap Vaccine Hx NO SKIN DISRUPTIONS 03/03/15 9:40am Vital Signs Acute Vital Signs Vital Response Date/Time Temperature (Fahrenheit) 97.8 deg F (96.8 - 99.1) 08/12/2015 8:48am Temperature (Calculated Celsius) 36.83803 degrees C (36.0 - 37.3) 08/12/2015 8:48am Temperature Source Temporal 08/12/2015 8:48am Pulse Rate (adult) 58 bpm (60 - 100) 08/12/2015 9:40am Respiratory Rate 16 breaths/min (10 - 20) 08/12/2015 9:40am O2 Sat by Pulse Oximetry 96 % (90 - 100) 08/12/2015 9:40am Oxygen Delivery Method Room Air 08/12/2015 9:40am Oxygen Flow Rate 6.00 L/min 08/12/2015 8:48am Blood Pressure 146/77 mm Hg 08/12/2015 9:40am Blood Pressure Source Automatic Cuff 08/12/2015 9:40am Height (Feet) 5 feet 08/12/2015 6:54am Height (Inches) 6.00 inches 08/12/2015 6:54am Weight (Kilograms) 83.400 kg 08/12/2015 6:54am Body Mass Index (BMI) 29.7 08/12/2015 6:54am Results No known relevant diagnostic tests, laboratory data and/or discharge summary. Procedures Procedure Status Date Provider(s) X-RAY EXAM OF FINGER(S) Completed 06/20/15 DXA BONE DENSITY AXIAL Completed 07/29/15 Colonoscopy Completed 08/12/15 KEVIN HERNANDEZ MD Encounters Encounter Location Arrival/Admit Date Discharge/Depart Date Attending Provider Departed [facility] Day Care [facility] 08/12/15 6:39am 08/12/15 10 :00am KEVIN HERNANDEZ MD Registered Clinic [facility] 07/29/15 10:03am MARTÍN PABLO Registered Clinic [facility] 06/20/15 9:03am MUNDO CHACON
[2016-06-05] MEDS ORDERED: CALC-727 PO (11:09)
[2016-06-05] MEDS ORDERED: HYDR10TA14 PO (11:13)
[2016-06-05] MEDS ORDERED: CYCL30DR BOTH EYES (11:18)
[2016-06-05] MEDS ORDERED: ALBU18HF2 INH (11:18)
[2016-06-05] MEDS ORDERED: DEXT15DR5 BOTH EYES (11:18)
[2016-06-05] MEDS ORDERED: FLUT16SP EA NOSTRIL (11:18)
[2016-06-05] MEDS ORDERED: GABA-338 PO (11:18)
--- NOTE | 2016-06-05 11:45 | NUR ---
ACTIVITY PATIENT AMBULATORY TO RESTROOM, TOLERATES ACTIVITY WELL.
--- NOTE | 2016-06-05 11:59 | NUR ---
PROVIDER N NOLD ESTATE ADMINISTRATOR AT BEDSIDE FOR H&P
--- OUTSIDE RECORDS SUMMARY | 2016-06-05 12:01 | XMS REPORT | Continuity of Care Document ---
Author Author [facility] Organization [facility] Address Unknown Phone Unavailable Support Name Relationship Address Phone HAMIDA CONNOR MD Caregiver [address] [place] [phone] BHARTI TY DO Caregiver [facility] [address] [place] [address] [address] [place] [address] SARAH EUBANKS SR Next Of Kin [address] [place] [address] Insurance Providers Payer Name Policy Number Subscriber Name Relationship [facility] Preferred [id number] Sarah Eubanks Spouse Advance Directives Directive Response [...] [pristiq] 50 Mg PO BEDTIME 12/18/09 Active Calcitonin,[place],Synthetic 3.7 Ml NS DAILY 12/18/09 07/04/12 Discontinued [...] of your legs. 3.During office hours, call [phone] 4. After hours, please call [facility] at [phone], and have the dubbing machine operator page your Surgeon IN THE [...] Disposition 01 DISCHARGED HOME, SELF-CARE Instructions/Education Provided [facility] Orthopedic Dismissal Prescriptions See Medications Section Functional [...] F (96.8 - 99.1) Temperature (Calculated Celsius) 36.26462 degrees C (36.0 - 37.3) Temperature Source [...] VALUE --10-60 (a.m. collection) Test Performed by: [place] [address] Spinning Lathe Operator: Calixto Brown III, M.D. ACTH performed at [facility], [address] [place] [address] Security Patrol Driver Kevin Goode MD Alanine Aminotransferase (ALT/SGPT) May [...] 31, 2013 9:01pm LAB TEST FORM REQUEST [id number] - Lipase May 17, 2013 4:50pm 147 [...] Has specimen been collected/obtained? Y Urine Specific [place] November 07, 2013 1:37pm 1.020 - COMMENT [...] Indeterminate >120 U/mL: Positive ANCA performed at [facility] Reference Lab, [address] [place] [id number] Security Patrol Driver Amanda Goode MD p-ANCA May 17, 2013 4:50pm 24 U/mL - Wet Prep Vagina October 21, 2011 3:35pm Helicobacter pylori Rapid Urease Gastric Biopsy December 18, 2009 9:31am Urine Culture Urine, Clean Catch-Midstream May 17, 2013 4:50pm Name: WAYNE EUBANKS Unit #: [id number] : [id number] Sex: F Loc / Svc: MED DOS: Signed Report #: [id number] DIAGNOSTIC IMAGING REPORT TYPE OF EXAM: US [...] limb. There is a preliminary report by [facility]. . Procedures Procedure Status Date Provider(s) Total knee arthroplasty completed 11/08/13 HAMIDA CONNOR MD Encounters Encounter Location Date/Time Discharged Inpatient [facility] 11/08/13 6:46am Registered [facility] 11/02/13 3:37pm Registered [facility] 10/16/13 1:25pm Registered [facility] 10/15/13 4:38pm Recent Diagnosis Right knee DJD
--- OUTSIDE RECORDS SUMMARY | 2016-06-05 12:01 | XMS REPORT | Continuity of Care Document ---
Author Author [facility] Organization [facility] Address Unknown Phone Unavailable Allergies Active Description [...] CORONAR ARTERIOGR-2 CATH Marian BOYLE, Maulik 09/13/2014 [id number] OFFICE/OUTPATIENT VISIT, Juan Serrano 07/15/2015 [id number] OFFICE/OUTPATIENT VISIT, Juan Serrano 07/15/2015 [id number] OFFICE/OUTPATIENT VISIT, Juan Serrano 01/13/2016 [id number] OFFICE/OUTPATIENT VISIT, Juan Serrano 01/13/2016 Results Test [...] Status Pt. Type Provider Facility Loc./Unit Complaint [id number] 09/13/2014 10:40:00 2014 17:00:00 DIS Outpatient Marian BOYLE, [facility]
--- OUTSIDE RECORDS SUMMARY | 2016-06-05 12:01 | XMS REPORT | Continuity of Care Document ---
Author Author [facility] Organization [facility] Address Unknown Phone Unavailable Support Name Relationship Address Phone BHARTI TY Caregiver [facility] [address] [place] [address] [place] [phone] SARAH SANTANA SR Next Of Kin [address] [place] [address] Insurance Providers Payer Name Policy Number Subscriber Name Relationship [facility] Preferred [id number] Sarah Santana Spouse Advance Directives Directive Response [...] [pristiq] 50 Mg PO BEDTIME 12/18/09 Active Calcitonin,[place],Synthetic 3.7 Ml NS DAILY 12/18/09 07/04/12 Discontinued [...] UP WITH DR. TY (CBC, CMP AT [facility] BEFORE APPOINTMENT WITH KARSON CEJA TUESDAY NEXT [...] have difficulty breathing. During office hours, call [phone]. After hours, please call [facility] at [phone] and have the graduating machine operator page Dr. Condon or the covering [...] F (96.8 - 99.1) Temperature (Calculated Celsius) 36.69770 degrees C (36.0 - 37.3) Temperature Source [...] VALUE --10-60 (a.m. collection) Test Performed by: [address] [address] Operations Manager Station: Calixto Brown III, M.D. ACTH performed at [facility], [address] [place] [address] Hourly Caregiver Kevin Goode MD Alanine Aminotransferase (ALT/SGPT) November [...] 31, 2013 9:01pm LAB TEST FORM REQUEST [id number] - Lipase May 17, 2013 4:50pm 147 [...] 15, 2013 5:01am 12.0 % H 0-9.0 WB-Gyd-N-Type Natriuretic Peptide November 14, 2013 12:12pm 566 [...] Has specimen been collected/obtained? Y Urine Specific [place] November 14, 2013 2:30pm 1.010 L - [...] Indeterminate >120 U/mL: Positive ANCA performed at [facility] Reference Lab, [address] [place] [address] Hourly Caregiver Amanda Goode MD p-ANCA May 17, 2013 4:50pm 24 U/mL - Wet Prep Vagina October 21, 2011 3:35pm Helicobacter pylori Rapid Urease Gastric Biopsy December 18, 2009 9:31am Urine Culture Urine, Clean Catch-Midstream May 17, 2013 4:50pm Name: WAYNE SANTANA Unit #: [id number] : 1950 Sex: F Loc / Svc: SR DOS: Signed Report #: [id number] DIAGNOSTIC IMAGING REPORT TYPE OF EXAM: US [...] MD Encounters Encounter Location Date/Time Discharged Inpatient [facility] 11/14/13 11:43am Discharged Inpatient [facility] 11/08/13 6:46am Registered [facility] 11/02/13 3:37pm Registered [facility] 10/16/13 1:25pm Registered [facility] 10/15/13 4:38pm Recent Diagnosis Hypothyroidism Adrenal insufficiency
[2016-06-05 12:14] LABS: BLOOD, URINE NEGATIVE (NEGATIVE); COLOR,URINE YELLOW (YELLOW); LEUKOCYTE ESTERASE ,URINE NEGATIVE (NEGATIVE); NITRITE,URINE NEGATIVE (NEGATIVE); UROBILINOGEN,URINE 0.2 EU/DL (NORMAL)
[2016-06-05] MEDS ORDERED: ORPHENADRINE 60mg/2ml INJECTION IM ONE (12:15)
[2016-06-05] MEDS ORDERED: KETOROLAC 60mg/2ml INJECTION IM ONE (12:15)
--- NOTE | 2016-06-05 12:15 | ERPDOC ---
Departure Disposition Decision Date: Jun 05, 2016 Disposition Decision Time: 12:27 Disposition: 01 DISCHARGED HOME, SELF-CARE Impression Impression Impression: Primary Impression: Low back pain Chronicity: acute Back pain laterality: right Sciatica presence: without sciatica Qualified Codes: M54.5 - Low back pain Severity: Moderate Condition: Stable Seen By: Mid-level only Referrals: JUVE OROSCO MD (Family) Patient Instructions: Acute Low Back Pain (ED) Problems/Meds/Labs Reviewed?: Yes Medications reviewed and manag: Yes Additional Instructions: Take the Naproxen as prescribed and the Corning and Cyclobenzaprine as needed for pain. If you are not improving over the next few days however then follow up with your primary care provider for reevaluation. Follow up care ordered?: Yes Mental Status: Alert, Oriented Scripts Hydrocodone/Acetaminophen ([place] 5-325 Tablet) 5-325 Tablet 1 TAB PO Q6H Y for PAIN, #15 TAB 0 Refills Prov: COOPER NICHOLAS APRN 06/05/16 Naproxen (Naprosyn) 500 Mg Tablet 1 TAB PO BID, #20 TAB 0 Refills Prov: PARKERESA Tony MILLERN 06/05/16 Cyclobenzaprine HCl (Cyclobenzaprine HCl) 10 Mg Tablet 1 TAB PO TID, #15 TAB 0 Refills Prov: COOPER NICHOLAS APRN 06/05/16 HPI - Back Pain General Chief Complaint: Low Back Pain or Injury Stated Complaint: BACK STRAIN Time Seen by Provider: 11:55 Source: patient Exam Limitations: no limitations HPI - Back Pain Initial Comments She has had some right lower back pain since yesterday. Does not recall any injury at home or anything that may be the source of the start of the pain. Has gotten worse today. Did take some Tramadol and Ibuprofen this morning without relief of pain. Denies any history of back pain. Is worse with movement but nothing seems to improve the pain. Denies any associated symptoms at all. Pain does not radiate at all. Occurred At: home Onset/Timing: Gradual Duration: 12-24 hrs Severity/Quality: moderate Location: paraspinous muscles (right lower back) Radiation: other (None) 1 - area of pain Method of Injury/Context: unknown Associated Sypmtoms: lower back pain, DENIES: fever, loss of bladder control, loss of bowel control, muscle spasms, numbness in legs/feet, sensory/motor loss , tingling in legs/feet, weakness Hx of Similar Symptoms: No Allergies: Coded Allergies: amoxicillin trihydrate (Verified Allergy, Unknown, NAUSEA AND DIARRHEA, ) potassium clavulanate (Verified Allergy, Unknown, NAUSEA AND DIARRHEA, ) sulfamethoxazole (Verified Adverse Reaction, Mild, nausea and diarrhea, ) trimethoprim (Verified Adverse Reaction, Mild, nausea and diarrhea, ) Uncoded Allergies: CHLORA-PREP (Adverse Reaction, Intermediate, ITCHING, 08/24/12) COMPLAINED OF ITCHING IMMEDIATELY AFTER APPLICATION PRIOR TO KNEE SCOPE 08/2012, CLEANING AREA WITH WARM WATER RELIEVED DISCOMFORT. Past History Past Medical History Metabolic: hypercholesterolemia, hypertension, hypothyroidism ENMT: allergies, sleep apnea Cardiac: PSVT Respiratory: asthma, pulmonary hypertension GI: GERD Female: UTI Musculoskeletal: back pain, neck pain, osteoarthritis Psychological: bipolar, depression Surgical History General: appendix, back, gallbladder, tonsils Cardiac: radio ablation Reproductive/: tubal ligation Joint: knee Family History Family PMH: FOUND: other Vaccines Hx Influenza Vaccination: Yes (DEC 2014) Hx Pneumococcal Vaccination: Yes (JUNE 2012) Social History Smoking Status: Never smoker Does patient use chewing tobac: No Substance Use Type: does not use Alcohol Intake: none Housing: house Review of Systems Constitutional Constitutional: DENIES: chills, dizziness, fatigue, fever, weakness Cardiovascular Cardiac: DENIES: chest pain, orthopnea Rhythm/Rate: DENIES: irregular beat, palpitations Pulmonary Respiratory: DENIES: cough, dyspnea, sputum, tachypnea GI Upper Abdomen: DENIES: nausea, pain, vomiting Lower Abdomen: DENIES: constipation, diarrhea, pain General: DENIES: discharge, dysuria, frequency, hematuria, urgency Musculoskeletal General: pain (right lower back pain) Integumentary Skin: DENIES: rash Neurological General: DENIES: headache, numbness, tingling, weakness Physical Exam General General Nourishment: well nourished, well developed, appears stated age, no acute distress, adult General Body Habitus: well groomed Vitals and Pain First Documented Vital Signs Date Time Temp Pulse Resp B/P Pulse Ox O2 Delivery O2 Flow Rate FiO2 06/05/16 10:40 97.9 63 17 143/78 97 Room Air Weight: Kilograms: 87.000 Height (feet): 5 Height (inches): 6.00 Triage Pain Scale: RN VS reviewed by Provider: Yes Normal Exams: Neck: Full range of motion, without adenopathy, JVD, bruits or thyromegaly Chest/Resp: Clear all cheney, with good airflow, and symmetry bilaterally CV: Regular rate and rhythm, without murmur or gallop, Pulses 2+ all extremities, capillary refill, <2 seconds all ext., no pedal edema noted Abdomen: Bowel sounds positive, soft, non-tender, non-distended, no hepatosplenomegaly, masses or bruits noted Lymphatic: No lymphadenopathy, or lymphedema noted Integumentary: No rashes, hives, or bruising noted Neurologic: Patient is alert, and oriented, cranial nerves, motor/sensory/ cerebellar, exams w/o gross deficits, to observation Psychiatric: Patient exhibits, appropriate attention, emotion and affect Musculoskeletal (brief) Musculoskeletal Brief: FOUND: tenderness (Mild TTP in the right lower back musculature, no spinal tenderness) Differential Diagnoses Considering: Compression Fracture, Fracture, Lumbar Sprain, Lumbar Strain, Pyelonephritis, UTI Progress Results/Orders Orders Procedure Category Date Status Time Ua, Dip Wreflex LAB 06/05/16 Complete Microsc & Transportation Escort 12:02 Orphenadrine (Norflex) PHA 06/05/16 Complete 12:15 Ketorolac (Toradol) PHA 06/05/16 Complete 12:15 Lab Results Laboratory Tests Test 06/05/16 12:07 Urine Collection Type Cleancatch-midstream Urine Color Yellow Urine Turbidity Sl cloudy Urine pH 5.5 Urine Specific [place] <=1.005 Urine Protein Negative Urine Glucose (UA) Negative Urine Ketones Negative Urine Blood Negative Urine Nitrite Negative Urine Bilirubin Negative Urine Urobilinogen 0.2EU/DL Urine Leukocyte Esterase Negative Urinalysis Comment Microscopic not ind. Medications Current ED Medications Orphenadrine Citrate (Norflex) 60 mg O ONCE IM Last administered on 06/05/16 12:08; Start 06/05/16 at 12:15; Stop 06/05/16 at 12:16; Status DC Ketorolac Tromethamine (Toradol) 60 mg O ONCE IM Last administered on 12:08; Start 06/05/16 at 12:15; Stop 06/05/16 at 12:16; Status DC Progress Progress UA today was negative for infection. Toradol and Norflex were given IM today. Will go ahead and let her go home with Rx for Corning, Flexeril, and Naproxen. Will have her follow up with her PCP this week if not improving at all. COOPER NICHOLAS APRN Jun 05, 2016 12:15
[2016-06-05] MEDS ORDERED: HYDR-4246 PO (12:29)
[2016-06-05] MEDS ORDERED: NAPR500T PO (12:29)
[2016-06-05] MEDS ORDERED: CYCL-375 PO (12:29)
[2016-06-05 12:35] VITALS: BP 136/61; PULSE 62; RESP 19; O2SAT 92
== END 2016-06-05 12:35 | disposition home or self-care (01) ==
LOC: ED 10:37
DX: M54.5 Low back pain (principal)
CPT/HCPCS: 81003; 96372; 99283; J1885; J2360

== ENCOUNTER → 2016-06-09 | Outpatient (CLI) | payer OTHER, MEDICARE ==
[~2016-06-09] MED LIST changes: +ALBU18HF2 INH; +CALC-727 PO; -CALC600T12 PO; +CYCL-375 PO; +CYCL30DR BOTH EYES; +DEXT15DR5 BOTH EYES; +FLUT16SP EA NOSTRIL; +GABA-338 PO; +HYDR-4246 PO; +NAPR500T PO
--- NOTE | 2016-06-09 16:19 | DI ---
Indication: ITS.REASON: M54.5 LOW BACK PAIN PROCEDURE: MRI LUMBAR SPINE W/O CONTRAST: Encounter: Initial Comparison: MRI lumbar spine dated August 30, 2006 Technique: Multiplanar multisequence MR imaging of the lumbar spine was performed without contrast. Findings: Interval development of moderate scoliosis. New degenerative endplate change at L1-L2 and L3-L4 with worsening in the existing degenerative endplate disease at L4-L5. Conus medullaris terminates normally at L1. The paraspinal soft tissues show no acute findings. Postsurgical changes are seen with posterior decompression at L3-L4 and L4-L5. Segmental analysis: L1-L2: Moderate disk height loss with a broad annular disk bulge but no central canal stenosis. No neural foraminal stenosis. L2-L3: Degenerative facet disease on the right without focal central protrusion or central canal stenosis. Mild right neural foraminal stenosis. No left foraminal narrowing. L3-L4: Disk osteophyte complex. Posterior decompression. Narrowing of the right lateral recess with severe right neural foraminal stenosis and bony impingement on the exiting right L3 nerve root is worsened from the comparison study. Mild left neural foraminal stenosis. L4-L5: Posterior decompression and degenerative facet hypertrophy. No central protrusion. Moderate disk desiccation and height loss. Mild bony neural foraminal stenosis bilaterally. L5-S1: Degenerative facet hypertrophy on the left with a small left central and foraminal disk protrusion. No central canal stenosis. Severe left neural foraminal stenosis with impingement on the exiting left L5 nerve root. This has worsened. Minimal right neural foraminal narrowing. Impression: New scoliosis with worsening degenerative disk and facet disease causing nerve root impingement on the left at L3-L4 and on the right at L5-S1. .
== END ==
LOC: IMA 15:12
PROVIDERS: ATTEND Family Medicine
DX: M41.9 Scoliosis, unspecified (principal); M47.896 Other spondylosis, lumbar region; M47.897 Other spondylosis, lumbosacral region; M51.36 Other intervertebral disc degeneration, lumbar region; Z98.890 Other specified postprocedural states; M54.5 Low back pain